=== PATIENT | female | born 1970 | race Caucasian/White ===

== ENCOUNTER 2017-08-05 09:40 | Observation (INO) | payer OTHER ==
[2017-08-05] MEDS ORDERED: ONDANSETRON 4 MG/2 ML VIAL IVP ONE (10:33)
[2017-08-05 10:34] LABS: ABSOLUTE IMMATURE GRANULOCYTES 0.13 10^3/uL (0.00-0.10); ADD DIFF? NO; ADD MORPH? NO; ADD SCAN? NO; ATYPICAL LYMPHOCYTE FLAG 0 (0-99); FRAGMENT RBC FLAG 20 (0-99); HEMATOCRIT 41.9 % (38.0-47.0); HEMOGLOBIN 14.7 g/dL (12.6-16.3); LEFT SHIFT FLG 0 (0-99); LIPEMIA HEMOLYSIS FLAG 90 (0-99); MEAN CELL HEMOGLOBIN 32.7 pg (27.9-34.1); MEAN CELL HEMOGLOBIN CONCENTR. 35.1 g/dL (32.4-36.7); MEAN CELL VOLUME 93.3 fL (81.5-99.8); MEAN PLATELET VOLUME 8.7 fL (8.7-11.7); PLATELET CLUMPS FLAG 10 (0-99); PLATELET COUNT 385 10^3/uL (150-400); RED BLOOD CELL COUNT 4.49 10^6/uL (4.18-5.33); RED CELL DISTRIBUTION WIDTH 13.2 % (11.5-15.2)
[2017-08-05 10:52] LABS: ALANINE AMINOTRANSFERASE 51 IU/L (9-52); ALBUMIN 4.1 g/dL (3.5-5.0); ALKALINE PHOSPHATASE 81 IU/L (38-126); ANION GAP 9 mEq/L (8-16); ASPARTATE AMINOTRANSFERASE 30 IU/L (14-46); BILIRUBIN,TOTAL 0.7 mg/dL (0.1-1.4); BILIRUBIN-CONJUGATED 0.4 mg/dL (0.0-0.5); BILIRUBIN-UNCONJUGATED 0.3 mg/dL (0.0-1.1); CALCIUM 9.6 mg/dL (8.5-10.4); CARBON DIOXIDE 22 mEq/l (22-31); CHLORIDE 104 mEq/L (97-110); CREATININE 0.8 mg/dL (0.6-1.0); GLOMERULAR FILTRATION RATE > 60; GLUCOSE 131 mg/dL (70-100); POTASSIUM 4.8 mEq/L (3.5-5.2); SODIUM 135 mEq/L (134-144)
[2017-08-05] MEDS ORDERED: LORazepam 2 MG/ML INJ IVP ONE (11:59)
[2017-08-05 12:05] LABS: COLOR YELLOW; LEUKOCYTE ESTERASE,URINE NEGATIVE (NEGATIVE); NITRITE,URINE NEGATIVE (NEGATIVE)
[2017-08-05 12:06] LABS: MUCUS TRACE /lpf (NONE-1+)
--- NOTE | 2017-08-05 13:00 | CPEKG ---
Heart Rate: 78 RR Interval: 769 P-R Interval: 164 QRSD Interval: 88 QT Interval: 424 QTC Interval: 484 P [place]: 50 QRS [place]: 43 T Wave [place]: 235 EKG Severity - ABNORMAL ECG - EKG Impression: SINUS RHYTHM EKG Impression: ABNORMAL T, CONSIDER ISCHEMIA, ANT-LAT LEADS Electronically Signed By: Virginia Chaves 05-Aug-2017 15:25:30
[2017-08-05] MEDS ORDERED: DEXAMETHASONE 4 MG/ML VIAL IVP ONE ×2 (13:07)
[2017-08-05] MEDS ORDERED: cefOXitin SODIUM 2 GM in D5W 100 ML IV ONE ×2 (13:07→13:30)
[2017-08-05] MEDS ORDERED: LEVOTHYROXINE 100 MCG TAB PO SCH ×2 (13:15→13:30)
[2017-08-05] MEDS ORDERED: LR 1,000 ML IV SCH ×3 (13:30→16:00)
[2017-08-05] MEDS ORDERED: BUPIVACAINE 0.25% 30 ML SDV ONE (13:38)
--- NOTE | 2017-08-05 14:00 | PDGENHP ---
History and Physical - Chief Complaint abd pain - History of Present Illness 47 y/o female with acute onset upper abdominal pain at 0300. She came to the ED and was seen by Wisam Archibald PA-C. A gallbladder ultrasound showed multiple stone and an 11mm CBD. Surgical consultation was requested. History Information - Allergies/Home Medication List Allergies/Adverse Reactions: No Known Allergies Allergy (Unverified 08/05/17 10:12) Home Medications: Herbals/Supplements -Info Only 1 ea PO DAILY 08/05/17 [Last Taken Unknown] Ibuprofen [Motrin (*)] 200 mg PO DAILY PRN 08/05/17 [Last Taken Unknown] Levothyroxine [Synthroid 88 mcg (*)] 88 mcg PO DAILY06 08/05/17 [Last Taken ] Propylene Glycol/Peg 400 [Systane 0.3-0.4% Eye Drops] 1 drop EACHEYE DAILY PRN 08/05/17 [Last Taken Unknown] I have personally reviewed and updated: family history, medical history, social history (works at [employer]/grew up in [place]) - Past Medical History Additional medical history: history of palpitations/abnormal ECG at [facility] - Surgical History Reports: no pertinent surgical hx - Social History Smoking Status: Current every day smoker (smokes 5-6 cigs/day) Alcohol Use: Occasionally Drug Use: None Review of Systems Review of Systems: Gastrointestinal: Reports: vomitting Genitourinary: Reports: no symptoms Muscolosketal: Reports: no symptoms Skin: Reports: no symptoms Neurological: Reports: no symptoms Hematologic/Lymphatic: Reports: no symptoms Physical Exam Physical Exam: Temp Pulse Resp BP Pulse Ox 36.6 C 76 18 133/67 H 96 08/05/17 13:06 08/05/17 13:06 08/05/17 13:06 08/05/17 13:06 08/05/17 13:06 Constitutional: no apparent distress Eyes: anicteric sclera Ears, Nose, Mouth, Throat: moist mucous membranes Cardiovascular: regular rate and rhythym Respiratory: no respiratory distress, no rales or rhonchi, clear to auscultation Gastrointestinal: tenderness (RUQ/+ Bui's sign) Genitourinary: no bladder fullness Skin: warm, normal color Neurologic: AAOx3 Psychiatric: interacting appropriately Lymph, Heme, Immunologic: no cervical LAD, no supraclavicular LAD Lab Data & Imaging Review 08/05/17 10:25 08/05/17 10:25 WBC 13.38 10^3/uL (3.80-9.50) H 08/05/17 10:25 RBC 4.49 10^6/uL (4.18-5.33) 08/05/17 10:25 Hgb 14.7 g/dL (12.6-16.3) 08/05/17 10:25 Hct 41.9 % (38.0-47.0) 08/05/17 10:25 MCV 93.3 fL (81.5-99.8) 08/05/17 10:25 MCH 32.7 pg (27.9-34.1) 08/05/17 10:25 MCHC 35.1 g/dL (32.4-36.7) 08/05/17 10:25 RDW 13.2 % (11.5-15.2) 08/05/17 10:25 Plt Count 385 10^3/uL (150-400) 08/05/17 10:25 MPV 8.7 fL (8.7-11.7) 08/05/17 10:25 Neut % (Auto) 90.2 % (39.3-74.2) H 08/05/17 10:25 Lymph % (Auto) 6.2 % (15.0-45.0) L 08/05/17 10:25 [place] % (Auto) 2.3 % (4.5-13.0) L 08/05/17 10:25 Eos % (Auto) 0.1 % (0.6-7.6) L 08/05/17 10:25 Baso % (Auto) 0.2 % (0.3-1.7) L 08/05/17 10:25 Nucleat RBC Rel Count 0.0 % (0.0-0.2) 08/05/17 10:25 Absolute Neuts (auto) 12.07 10^3/uL (1.70-6.50) H 08/05/17 10:25 Absolute Lymphs (auto) 0.83 10^3/uL (1.00-3.00) L 08/05/17 10:25 Absolute Monos (auto) 0.31 10^3/uL (0.30-0.80) 08/05/17 10:25 Absolute Eos (auto) 0.01 10^3/uL (0.03-0.40) L 08/05/17 10:25 Absolute Basos (auto) 0.03 10^3/uL (0.02-0.10) 08/05/17 10:25 Absolute Nucleated RBC 0.00 10^3/uL (0-0.01) 08/05/17 10:25 Immature Gran % 1.0 % (0.0-1.1) 08/05/17 10:25 Immature Gran # 0.13 10^3/uL (0.00-0.10) H 08/05/17 10:25 Sodium 135 mEq/L (134-144) 08/05/17 10:25 Potassium 4.8 mEq/L (3.5-5.2) 08/05/17 10:25 Chloride 104 mEq/L (97-110) 08/05/17 10:25 Carbon Dioxide 22 mEq/l (22-31) 08/05/17 10:25 Anion Gap 9 mEq/L (8-16) 08/05/17 10:25 BUN 10 mg/dL (7-23) 08/05/17 10:25 Creatinine 0.8 mg/dL (0.6-1.0) 08/05/17 10:25 Estimated GFR > 60 08/05/17 10:25 Glucose 131 mg/dL (70-100) H 08/05/17 10:25 Calcium 9.6 mg/dL (8.5-10.4) 08/05/17 10:25 Total Bilirubin 0.7 mg/dL (0.1-1.4) 08/05/17 10:25 Conjugated Bilirubin 0.4 mg/dL (0.0-0.5) 08/05/17 10:25 Unconjugated Bilirubin 0.3 mg/dL (0.0-1.1) 08/05/17 10:25 AST 30 IU/L (14-46) 08/05/17 10:25 ALT 51 IU/L (9-52) 08/05/17 10:25 Alkaline Phosphatase 81 IU/L (38-126) 08/05/17 10:25 Total Protein 7.0 g/dL (6.3-8.2) 08/05/17 10:25 Albumin 4.1 g/dL (3.5-5.0) 08/05/17 10:25 Lipase 47 IU/L (23-300) 08/05/17 10:25 Beta HCG, Qual NEGATIVE 08/05/17 10:25 Urine Color YELLOW 08/05/17 11:50 Urine Appearance CLEAR 08/05/17 11:50 Urine pH 6.0 (5.0-7.5) 08/05/17 11:50 Ur Specific [place] 1.020 (1.002-1.030) 08/05/17 11:50 Urine Protein NEGATIVE (NEGATIVE) 08/05/17 11:50 Urine Ketones 1+ (NEGATIVE) H 08/05/17 11:50 Urine Blood NEGATIVE (NEGATIVE) 08/05/17 11:50 Urine Nitrate NEGATIVE (NEGATIVE) 08/05/17 11:50 Urine Bilirubin NEGATIVE (NEGATIVE) 08/05/17 11:50 Urine Urobilinogen NEGATIVE EU (0.2-1.0) 08/05/17 11:50 Ur Leukocyte Esterase NEGATIVE (NEGATIVE) 08/05/17 11:50 Urine RBC 1-3 /hpf (0-3) 08/05/17 11:50 Urine WBC 1-3 /hpf (0-3) 08/05/17 11:50 Ur Epithelial Cells TRACE /lpf (NONE-1+) 08/05/17 11:50 Urine Mucus TRACE /lpf (NONE-1+) 08/05/17 11:50 Urine Glucose NEGATIVE (NEGATIVE) 08/05/17 11:50 Visualized and Interpreted imaging results: Yes Interpretation: multiple gallstones on ultrasound/no wall thickening. MRCP normal CBD/no choledocholithiasis Visualized and Interpreted EKG results: Yes EKG Interpretation: Positive for: T waves inversion (present since 2009 on old ECG from [facility]) Assessment & Plan Assessment: cholecystitis/cholelithiasis old abnormality on ECG and hx arrhythmia I recommended proceeding with lap cholecystectomy. We discussed the procedure, risks and expected recovery. Informed consent was obtained Pre-op Cefoxitin 2 gm ordered. SCD's. Anticipate discharge tomorrow as patient lives alone. Loreto Luke MD, FACS
--- NOTE | 2017-08-05 14:10 | PDANEPAE ---
ANE Past Medical History - Cardiovascular History Hx Hypertension: No Hx Arrhythmias: Yes Hx Chest Pain: No Hx Coronary Artery / Peripheral Vascular Disease: No Hx CHF / Valvular Disease: No Hx Palpitations: Yes - Pulmonary History Hx COPD: No Hx Asthma/Reactive Airway Disease: No Hx Recent Upper Respiratory Infection: No Hx Oxygen in Use at Home: No Hx Sleep Apnea: No - Neurologic History Hx Cerebrovascular Accident: No Hx Seizures: No Hx Dementia: No - Endocrine History Hx Diabetes: No Hypothyroid: Yes Hyperthyroid: No Obesity: yes, mild - Renal History Hx Renal Disorders: No - Liver History Hx Hepatic Disorders: No - Cancer History Hx Cancer: No - Congenital Disorder History Hx Congenital Disorders: No ANE Review of Systems Review of Systems: - Exercise capacity METS (RN): 4 METS ANE Patient History - Allergies Allergies/Adverse Reactions: No Known Allergies Allergy (Unverified 08/05/17 10:12) - Home Medications Home Medications: Herbals/Supplements -Info Only 1 ea PO DAILY 08/05/17 [Last Taken Unknown] Ibuprofen [Motrin (*)] 200 mg PO DAILY PRN 08/05/17 [Last Taken Unknown] Levothyroxine [Synthroid 88 mcg (*)] 88 mcg PO DAILY06 08/05/17 [Last Taken ] Propylene Glycol/Peg 400 [Systane 0.3-0.4% Eye Drops] 1 drop EACHEYE DAILY PRN 08/05/17 [Last Taken Unknown] - NPO status NPO Since - Liquids (Date): 08/04/17 NPO Since - Liquids (Time): 21:00 NPO Since - Solids (Date): 08/04/17 NPO Since - Solids (Time): 21:00 - Smoking Hx Smoking Status: Current every day smoker (smokes 5-6 cigs/day) - Alcohol Use Alcohol Use: Occasionally - Family Anes Hx Family Anes Hx: neg - N/A ANE Labs/Vital Signs - Labs Result Diagrams: 08/05/17 10:25 08/05/17 10:25 - Vital Signs Blood Pressure: 133/67 Heart Rate: 76 Respiratory Rate: 18 O2 Sat (%): 96 Height: 157.48 cm Weight: 79.379 kg ANE Physical Exam - Airway Neck exam: FROM Mallampati Score: Class 2 Mouth exam: normal dental/mouth exam - Pulmonary Pulmonary: no respiratory distress, no rales or rhonchi, clear to auscultation - Cardiovascular Cardiovascular: regular rate and rhythym - ASA Status ASA Status: II ANE Anesthesia Plan Anesthesia Plan: general endotracheal anesthesia
[2017-08-05] MEDS ORDERED: PROPOFOL/EMULSION 500 MG/50 ML BOTTLE IV ONE (14:12)
[2017-08-05] MEDS ORDERED: REMIFENTANIL HCL 1 MG VIAL ONE (14:12)
[2017-08-05] MEDS ORDERED: fentaNYL 100 MCG/2 ML INJ ONE ×3 (14:12→15:44)
[2017-08-05] MEDS ORDERED: ROCURONIUM 50 MG/5 ML VIAL ONE (14:13)
[2017-08-05] MEDS ORDERED: SUCCINYLCHOLINE CHLORIDE*ANESTHESIA ONLY*200 MG/10 ML SYR IVP ONE (14:14)
[2017-08-05] MEDS ORDERED: LIDOCAINE 2% 5 ML SDV ONE (14:14)
[2017-08-05] MEDS ORDERED: KETOROLAC 30 MG/1 ML SDV ONE (14:14)
[2017-08-05] MEDS ORDERED: DEXAMETHASONE 4 MG/ML VIAL ONE (14:14)
[2017-08-05] MEDS ORDERED: ACETAMINOPHEN 500 MG TAB PO PRN (14:46)
[2017-08-05] MEDS ORDERED: OXYCODONE/APAP 5/325 TAB PO PRN (14:46)
[2017-08-05] MEDS ORDERED: HYDROCODONE/APAP 5/325 TAB PO PRN (14:46)
[2017-08-05] MEDS ORDERED: PROMETHAZINE HCL 25 MG/ML INJ IVP PRN ×2 (14:46→20:21)
[2017-08-05] MEDS ORDERED: HYDROmorphONE/DILAUDID 1 MG/ML INJ IVP PRN ×2 (14:46→20:22)
[2017-08-05] MEDS ORDERED: LR 500 ML IV PRN (14:46)
[2017-08-05] MEDS ORDERED: ONDANSETRON 4 MG/2 ML VIAL IVP PRN (14:46)
[2017-08-05] MEDS ORDERED: NALOXONE HCL 0.4 MG/ML INJ IVP PRN (14:46)
[2017-08-05] MEDS ORDERED: PHENYLEPHRINE HCL 100 MCG/ML SYR ONE (14:54)
--- NOTE | 2017-08-05 15:00 | EDPHY ---
H & P Stated Complaint: Epigastric pain;n/v since this morning;sent by [facility] for eval HPI/ROS: Chief complaint: Epigastric pain History of present illness: 47-year-old female presents to the emergency department for evaluation of epigastric pain. She reports the onset of symptoms over the last day. She has had associated nausea and vomiting. She denies precipitating factors. Denies alleviating factors. Denies other associated signs or symptoms including no fevers, no diarrhea or constipation, no urinary symptoms. She has never had similar. Review of systems: A 10 point review of systems was obtained and other than described above was negative - Personal History LMP (Females 10-55): Post Menopausal Current Tetanus Diphtheria and Acellular Pertussis (TDAP): Yes - Medical/Surgical History Hx Diabetes: No Other PMH: thyroid - Social History Smoking Status: Current every day smoker (smokes 5-6 cigs/day) - Physical Exam Exam: General Appearance: Alert, no distress. Eyes: Pupils equal and round no pallor or injection. ENT, Mouth: Mucous membranes moist. Respiratory: There are no retractions, lungs are clear to auscultation. Cardiovascular: Regular rate and rhythm. Gastrointestinal: Bowel sounds are normal. Patient is tender to palpation in the epigastric and right upper quadrant with positive Bui sign. Otherwise unremarkable. Neurological: Alert and oriented x4. Strength and sensation intact and symmetrical. Skin: Warm and dry, no rashes. Musculoskeletal: Neck is supple nontender. Extremities are symmetrical, full range of motion. Psychiatric: Patient is oriented X 3, there is no agitation. Constitutional: Initial Vital Signs Heart Rate 69 08/05/17 09:55 Respiratory Rate 18 08/05/17 09:55 Blood Pressure 131/78 H 08/05/17 09:55 O2 Sat (%) 99 08/05/17 09:55 O2 Delivery Mode Room Air Allergies/Adverse Reactions: No Known Allergies Allergy (Unverified 08/05/17 10:12) Home Medications: Medication Instructions Recorded Herbals/Supplements -Info Only 1 ea PO DAILY 08/05/17 Ibuprofen [Motrin (*)] 200 mg PO DAILY PRN 08/05/17 Levothyroxine [Synthroid 88 mcg 88 mcg PO DAILY06 08/05/17 (*)] Propylene Glycol/Peg 400 [Systane 1 drop EACHEYE DAILY PRN 08/05/17 0.3-0.4% Eye Drops] Medical Decision Making - Diagnostics Imaging Results: Imaging Impressions Abdomen Ultrasound 08/05/17 10:27 Impression: 1. Cholelithiasis with multiple mobile shadowing calculi. 2. Dilated common bile duct at 11 mm. 3. Distal common bile duct and pancreas obscured by bowel gas. Findings discussed with Emergency Department physician's bilingual legal assistant, Wisam Archibald, at 1136 hours, 08/05/2017. Final report concurs with initial preliminary interpretation. Abdomen MRI 08/05/17 11:44 Impression: 1. Cholelithiasis without evidence of choledocholithiasis, with the common bile duct at the upper limits of normal in caliber. 2. Fatty liver. 3. Tiny hiatal hernia. 4. Additional findings as above. Findings discussed with Theron Luke at the time of the study. Findings discussed with RAFY Edwards, 08/05/2017, at 1257 hours. Imaging: Discussed imaging studies w/ will call clerk Radiologist ED Course/Re-evaluation: Patient is discussed with my secondary supervising physician Dr. Virginia Chaves. Patient presents to the emergency department for epigastric pain. Ultimately patient appears to have an acute gallbladder problem. On-call surgery, Dr. Theron Luke has consulted on this patient, he recommended an MRCP. This is obtained and reviewed by Dr. Luke who has decided to take him to surgery. There is concern for EKG changes on a preop EKG. I have consulted with Dr. Gross with the patient's primary care group who reports inverted T- waves in V1 through V6 in 2009 and inverted T-waves in V1 through V4 on an EKG in 2015, I relayed this information to Dr. Luke. Ultimately the patient is admitted to Dr. Luke for definitive care. Differential Diagnosis: Included but not limited to cholelithiasis, cholecystitis, choledocholithiasis, cholangitis, pancreatitis, gastritis, gastroenteritis, peptic ulcer disease, urinary tract disease - Data Points Laboratory Results: Laboratory Results 08/05/17 10:25 08/05/17 10:25 08/05/17 08/05/17 08/05/17 11:50 10:25 10:25 WBC RBC Hgb Hct MCV MCH MCHC RDW Plt Count MPV Neut % (Auto) Lymph % (Auto) [place] % (Auto) Eos % (Auto) Baso % (Auto) Nucleat RBC Rel Count Absolute Neuts (auto) Absolute Lymphs (auto) Absolute Monos (auto) Absolute Eos (auto) Absolute Basos (auto) Absolute Nucleated RBC Immature Gran % Immature Gran # Sodium 135 mEq/L mEq/L (134-144) Potassium 4.8 mEq/L mEq/L (3.5-5.2) Chloride 104 mEq/L mEq/L (97-110) Carbon Dioxide 22 mEq/l mEq/l (22-31) Anion Gap 9 mEq/L mEq/L (8-16) BUN 10 mg/dL mg/dL (7-23) Creatinine 0.8 mg/dL mg/dL (0.6-1.0) Estimated GFR > 60 Glucose 131 mg/dL H mg/dL (70-100) Calcium 9.6 mg/dL mg/dL (8.5-10.4) Total Bilirubin 0.7 mg/dL mg/dL (0.1-1.4) Conjugated Bilirubin 0.4 mg/dL mg/dL (0.0-0.5) Unconjugated Bilirubin 0.3 mg/dL mg/dL (0.0-1.1) AST 30 IU/L IU/L (14-46) ALT 51 IU/L IU/L (9-52) Alkaline Phosphatase 81 IU/L IU/L (38-126) Total Protein 7.0 g/dL g/dL (6.3-8.2) Albumin 4.1 g/dL g/dL (3.5-5.0) Lipase 47 IU/L IU/L (23-300) Beta HCG, Qual NEGATIVE Urine Color YELLOW Urine Appearance CLEAR Urine pH 6.0 (5.0-7.5) Ur Specific [place] 1.020 (1.002-1.030) Urine Protein NEGATIVE (NEGATIVE) Urine Ketones 1+ H (NEGATIVE) Urine Blood NEGATIVE (NEGATIVE) Urine Nitrate NEGATIVE (NEGATIVE) Urine Bilirubin NEGATIVE (NEGATIVE) Urine Urobilinogen NEGATIVE EU EU (0.2-1.0) Ur Leukocyte Esterase NEGATIVE (NEGATIVE) Urine RBC 1-3 /hpf /hpf (0-3) Urine WBC 1-3 /hpf /hpf (0-3) Ur Epithelial Cells TRACE /lpf /lpf (NONE-1+) Urine Mucus TRACE /lpf /lpf (NONE-1+) Urine Glucose NEGATIVE (NEGATIVE) 08/05/17 10:25 WBC 13.38 10^3/uL H 10^3/uL (3.80-9.50) RBC 4.49 10^6/uL 10^6/uL (4.18-5.33) Hgb 14.7 g/dL g/dL (12.6-16.3) Hct 41.9 % % (38.0-47.0) MCV 93.3 fL fL (81.5-99.8) MCH 32.7 pg pg (27.9-34.1) MCHC 35.1 g/dL g/dL (32.4-36.7) RDW 13.2 % % (11.5-15.2) Plt Count 385 10^3/uL 10^3/uL (150-400) MPV 8.7 fL fL (8.7-11.7) Neut % (Auto) 90.2 % H % (39.3-74.2) Lymph % (Auto) 6.2 % L % (15.0-45.0) [place] % (Auto) 2.3 % L % (4.5-13.0) Eos % (Auto) 0.1 % L % (0.6-7.6) Baso % (Auto) 0.2 % L % (0.3-1.7) Nucleat RBC Rel Count 0.0 % % (0.0-0.2) Absolute Neuts (auto) 12.07 10^3/uL H 10^3/uL (1.70-6.50) Absolute Lymphs (auto) 0.83 10^3/uL L 10^3/uL (1.00-3.00) Absolute Monos (auto) 0.31 10^3/uL 10^3/uL (0.30-0.80) Absolute Eos (auto) 0.01 10^3/uL L 10^3/uL (0.03-0.40) Absolute Basos (auto) 0.03 10^3/uL 10^3/uL (0.02-0.10) Absolute Nucleated RBC 0.00 10^3/uL 10^3/uL (0-0.01) Immature Gran % 1.0 % % (0.0-1.1) Immature Gran # 0.13 10^3/uL H 10^3/uL (0.00-0.10) Sodium Potassium Chloride Carbon Dioxide Anion Gap BUN Creatinine Estimated GFR Glucose Calcium Total Bilirubin Conjugated Bilirubin Unconjugated Bilirubin AST ALT Alkaline Phosphatase Total Protein Albumin Lipase Beta HCG, Qual Urine Color Urine Appearance Urine pH Ur Specific [place] Urine Protein Urine Ketones Urine Blood Urine Nitrate Urine Bilirubin Urine Urobilinogen Ur Leukocyte Esterase Urine RBC Urine WBC Ur Epithelial Cells Urine Mucus Urine Glucose Medications Given: Discontinued Medications Lorazepam (Ativan Injection) 1 mg IVP EDNOW ONE Stop: 08/05/17 12:00 Last Admin: 08/05/17 12:07 Dose: 1 mg Ondansetron HCl (Zofran) 4 mg IVP EDNOW ONE Stop: 08/05/17 10:34 Last Admin: 08/05/17 10:38 Dose: 4 mg Departure - Departure Disposition: To OP Cath/Surgery Clinical Impression: Acute cholecystitis Condition: Good
[2017-08-05] MEDS ORDERED: SUGAMMADEX SODIUM 200 MG/2 ML VIAL IVP ONE (15:05)
--- NOTE | 2017-08-05 15:34 | POSTOPPROG ---
Post Op Note Date of Operation: 08/05/17 Surgeon: Theron Luke (, FACS) Anesthesiologist: Abdullahi Appiah Anesthesia: GET(General Endotracheal) Pre-op Diagnosis: cholelithiasis/cholecystitis Post-op Diagnosis: same Procedure: lap mauri Inf/Abcess present in the surg proc area at time of surgery?: No EBL: Minimal Specimen(s): gallbladder
[2017-08-05] MEDS ORDERED: OXYCODONE/APAP 5/325 TAB ONE (15:45)
[2017-08-05] MEDS: fentaNYL 100 MCG/2 ML INJ IVP PRN ×2 (15:45→15:52)
--- NOTE | 2017-08-05 19:20 | SOAPPROG ---
Downtime Inpatient MD Late Entry SOAP Note: Amie is resting comfortably after surgery. Her incisions appear uncomplicated We discussed the findings at surgery and I encouraged her to use her incentive spirometer. I anticipate she will discharge home in the morning. Loreto Luke MD, FACS
[2017-08-05] MEDS ORDERED: ONDANSETRON DISINTEGRATING 4 MG TAB PO PRN (20:21)
[2017-08-05] MEDS ORDERED: CARBOXYMETHYLCELLULOSE 0.5% 0.4 ML DROPERETTE EACHEYE PRN (20:27)
[2017-08-05] MEDS: HYDROCODONE/APAP 5/325 TAB PO PRN (20:37)
[2017-08-05] MEDS: SENNOSIDES/DOCUSATE SODIUM TAB PO SCH ×2 (20:38→20:40)
[2017-08-05 23:56] VITALS: RESP 16
--- NOTE | 2017-08-06 05:10 | GOP ---
[f rep st] OPERATIVE REPORT DATE OF OPERATION: 08/05/2017 SURGEON: Theron Luke MD ANESTHESIA: General endotracheal, Abdullahi Appiah DO. PREOPERATIVE DIAGNOSIS: Cholelithiasis and acute cholecystitis. POSTOPERATIVE DIAGNOSIS: Cholelithiasis and acute cholecystitis. PROCEDURE PERFORMED: Laparoscopic cholecystectomy. FINDINGS: Gallbladder distention secondary to cystic duct obstruction. Acute cholecystitis without evidence of gangrene. Mild fatty infiltration of the liver. ESTIMATED BLOOD LOSS: 10 cc. DESCRIPTION OF PROCEDURE: After informed consent was obtained, the patient was brought to the operat ing room and placed under general anesthesia. The abdomen was prepped and draped in THE usual fashio n. Before proceeding, a time-out and identification of the patient was performed. 0.25% Marcaine was used to infiltrate all incision sites. A longitudinal incision was made through t he base of the umbilicus and ventral traction applied to the abdominal wall. A Veress needle was int roduced and position was confirmed by saline infusion. A pneumoperitoneum was established with CO2 g as to a pressure of 15 mmHg. The Veress needle was withdrawn and replaced with a 12 mm bladeless tro car. A 0 degree scope was introduced and the peritoneal cavity was visualized. Additional 5 mm port s were placed under direct visualization in the subxiphoid position to the right of the falciform lig ament. The right upper quadrant midclavicular line and right upper quadrant anterior axillary line. This allowed introduction of atraumatic graspers and these were used to grasp the fundus of the gall bladder and retract and the liver cephalad. The liver appeared normal other than mild hepatic steato sis. The infundibulum of the gallbladder showed edema and swelling but no evidence of perforation or gangrene. There appeared to be a stone impacted into the neck of the gallbladder. This was grasped and retracted allowing dissection of the peritoneum around the cystic duct circumferentially. The c ystic artery was dispatched with the Harmonic Scalpel. The cystic duct was doubly hemo clipped and d ivided. The gallbladder was then dissected away from the liver edge using the Harmonic Scalpel with minimal bleeding. Gallbladder was retrieved through the umbilical port site. The subhepatic space w as irrigated and aspirated until the effluent was clear. The operative field appeared hemostatic. T he umbilical fascial defect was repaired with a single 0 Vicryl suture using a transfascial closure n idania. The pneumoperitoneum was evacuated. The remaining ports were removed. Subcutaneous tissues were closed with 3-0 Monocryl suture. Skin was closed with 4-0 Monocryl suture in a subcuticular fas hion. Mastisol and Steri-Strips were applied. Needle, sponge, and instrument count were correct. COMPLICATIONS: None. /[id number]/MODL
[2017-08-06 05:52] LABS: % IMMATURE GRANULYOCYTES 1.5 % (0.0-1.1); ABSOLUTE IMMATURE GRANULOCYTES 0.23 10^3/uL (0.00-0.10); ADD DIFF? NO; ADD MORPH? NO; ADD SCAN? NO; ATYPICAL LYMPHOCYTE FLAG 0 (0-99); FRAGMENT RBC FLAG 10 (0-99); HEMOGLOBIN 12.1 g/dL (12.6-16.3); LEFT SHIFT FLG 10 (0-99); LIPEMIA HEMOLYSIS FLAG 90 (0-99); MEAN CELL HEMOGLOBIN 33.3 pg (27.9-34.1); MEAN CELL HEMOGLOBIN CONCENTR. 35.6 g/dL (32.4-36.7); MEAN CELL VOLUME 93.7 fL (81.5-99.8); MEAN PLATELET VOLUME 9.1 fL (8.7-11.7); PLATELET CLUMPS FLAG 10 (0-99); PLATELET COUNT 329 10^3/uL (150-400); RED BLOOD CELL COUNT 3.63 10^6/uL (4.18-5.33); RED CELL DISTRIBUTION WIDTH 13.3 % (11.5-15.2)
--- NOTE | 2017-08-06 06:45 | PDDCSUM ---
Discharge Summary Discharge Summary: DOA: 08/05/17 DOD: 08/06/17 DC Dx: Acute cholecystitis Procedure: 08/05 lap cholecystectomy Course: Amie presented with acute onset of RUQ pain and was found to have acute cholcystitis due to gallstones and cystic duct obstruction. She underwent uneventful lap mauri and was admitted for obs after surgery. Her pain improved and she was advanced in her diet. She was discharged the morning after surgery with instructions in diet and activity. She will follow up in my office in one week and will be likely ready to return to work by 08/17/17 DC Meds: med reconciliation completed Rx written for [place] 5/325 #30, Senokot-S #30 and Zofran 4mg #7 S MD Ti, FACS
[2017-08-06 08:23] VITALS: BP 110/59; PULSE 66; TEMP 98.1; O2SAT 97
[2017-08-06] MEDS: HYDROCODONE/APAP 5/325 TAB PO PRN (08:38)
[2017-08-06] MEDS: SENNOSIDES/DOCUSATE SODIUM TAB PO SCH (08:38)
[2017-08-06] MEDS ORDERED: FLU VACC QS 2017-18 (3YR+)/PF 0.5 ML SYR (FLUARIX QUAD) IM ONE ×2 (08:44→11:30)
[2017-08-06] MEDS ORDERED: ENOXAPARIN 40 MG/0.4 ML SYR SC SCH (09:00)
--- NOTE | 2017-08-06 13:24 | ASDISCHSUM ---
Discharge Information Plan Status:Home with No Needs Medically Cleared to Leave: Discharge Date:08/06/2017 12:00 PM CM D/C Disposition:Home, Routine, Self-Care ADT D/C Disposition:Home, Routine, Self-Care Projected Discharge Date:08/06/2017 12:00 PM Transportation at D/C:Family Discharge Delay Reason: Follow-Up Date:08/06/2017 12:00 PM Discharge Slot: Final Diagnosis: Placement Information Patient Contact Information Contact Name:HOWARDTOLU Relationship: Address: Home Phone: Work Phone: City: Alternate Phone: State/Achieved.[employer] Code: Email: Financial Information Financial Class:HMO and PPO Plans Primary Plan Desc:[employer] P[employer] Primary Plan Number:[id number] Secondary Plan Desc: Secondary Plan Number: Assessment Information Intervention Information Intervention Type:*Incorrect Registration Date of Service:08/06/2017 10:24 AM Patient Type:Inpatient Staff Member:JUAN Sam, Conchita Hours: Discipline: Severity: Comment:
== END 2017-08-06 12:00 | disposition home or self-care (01) ==
LOC: INTOOBSV 13:16 → F3E 16:23
PROVIDERS: ADMIT Surgery; ATTEND Surgery
PROC: 0FT44ZZ Resection of Gallbladder, Percutaneous Endoscopic Approach (ICD-10-PCS; principal; 2017-08-05 14:00)
DX: K80.01 Calculus of gallbladder with acute cholecystitis with obstruction (principal); F17.210 Nicotine dependence, cigarettes, uncomplicated; Z23 Encounter for immunization
CPT/HCPCS: 47562; 74181; 76705; 90471; 93005; G0378; 96374; G0008; J0330; J0694; J1100; J1650; J1885; J2060; J2370; J2405; J2704; J3010

== ENCOUNTER 2017-08-08 04:27 | Observation (INO) | payer OTHER ==
--- NOTE | 2017-08-08 04:35 | EDPHY ---
H & P Stated Complaint: abd pain, post-op 08/05 HPI/ROS: HPI CHIEF COMPLAINT: Abdominal pain HISTORY OF PRESENT ILLNESS: This patient is a 39-year-old female otherwise healthy no significant medical history she has recently had a cholecystectomy by Dr. Luke on the 05 of August. She presents emergency room with sudden onset epigastric abdominal pain she describes as sharp stabbing waxing waning. It goes directly to her back. She has associated nausea with it. Denies any lower abdominal pain. Denies significant pain at her laparoscopic sites. Denies chest pain or shortness of breath. Pain is located epigastric and right upper quadrant. No fever. This woke her from sleep at 3:30 a.m.. Past Medical History: Denies significant medical history Past Surgical History: Cholecystectomy Social History: Denies daily use drugs alcohol tobacco products. Family History: Noncontributory. ROS REVIEW OF SYSTEMS: A comprehensive 10 point review of systems is otherwise negative aside from elements mentioned in the history of present illness. Exam Constitutional appears well nontoxic, triage nursing summary reviewed, vital signs reviewed, awake/alert. Eyes normal conjunctivae and sclera, EOMI, PERRLA. HENT normal inspection, atraumatic, moist mucus membranes, no epistaxis, neck supple/ no meningismus, no raccoon eyes. Respiratory clear to auscultation bilaterally, normal breath sounds, no respiratory distress, no wheezing. Cardiovascular rate normal, regular rhythm, no murmur, no edema, distal pulses normal. Gastrointestinal soft, mild tender palpation epigastric laparoscopic sites appear clean, dry, intact, minimally tender,, no rebound, no guarding, normal bowel sounds, no distension, no pulsatile mass. Genitourinary no CVA tenderness. Musculoskeletal no midline vertebral tenderness, full range of motion, no calf swelling, no tenderness of extremities, no meningismus, good pulses, neurovascularly intact. Skin pink, warm, & dry, no rash, skin atraumatic. Neurologic awake, alert and oriented x 3, AAOx3, moves all 4 extremities equally, motor intact, sensory intact, CN II-XII intact, normal cerebellar, normal vision, normal speech. Psychiatric normal mood/affect. Heme/Lymph/Immune no lymphadenopathy. Differential Diagnosis: Includes but is not limited to in a particular order, postoperative pain, retained gallstone, pancreatitis, bowel obstruction, dehydration, electrolyte disturbance. Medical Decision Making: Plan for this patient IV establishment with IV blood draw, obtain EKG, troponin, lipase, LFTs, bilirubin, IV Dilaudid 1 mg for pain control, IV Zofran for nausea. Re-evaluation: EKG interpretation by me on record in [facility] system. Impression time of EKG 4:57 a.m., this is sinus rhythm rate of 67. Abnormal T-wave inversions V1 V2 V3. 1 I compare this EKG dated to her old EKG 08/05/2017 similar morphology there the T-wave abnormality seen in V1 V2 V3 and V4 exactly same as her previous EKG. ED x-ray chest one view an ED x-ray KUB no free air. Normal bowel gas pattern. 0552: ED ultrasound right upper quadrant trace free fluid around the liver and more since lb otherwise unremarkable. CBD normal. No large biloma appreciated. Blood work reviewed. Patient comfortable with pain medicine that this time. 2 mg IV Dilaudid. She received IV fluids and Zofran. Resting at this time. 0556AM: Dr. Luke as been consult. Requesting CT scan abdomen pelvis with IV contrast. CT scan of the abd iv contrast The results of the study are ff liver pelvis. The study was read by Dr. Luke. I viewed the images myself on the PACS system. 0651AM: Dr. Luke Seeing and evaluating patinet. Most likely admit. Dispo Per Dr. Luke. . Source: Patient - Personal History LMP (Females 10-55): Now - Medical/Surgical History Hx Asthma: No Hx Chronic Respiratory Disease: No Hx Diabetes: No Hx Cardiac Disease: No Hx Renal Disease: No Hx Cirrhosis: No Hx Alcoholism: No Hx HIV/AIDS: No Hx Splenectomy or Spleen Trauma: No Other PMH: thyroid, - Social History Smoking Status: Current every day smoker Constitutional: Initial Vital Signs Temperature (C) 37.1 C 08/08/17 04:29 Heart Rate 70 08/08/17 04:29 Respiratory Rate 20 08/08/17 04:29 Blood Pressure 155/84 H 08/08/17 04:29 O2 Sat (%) 98 08/08/17 04:29 O2 Delivery Mode Room Air O2 (L/minute) 2 Allergies/Adverse Reactions: No Known Allergies Allergy (Unverified 08/08/17 04:29) Home Medications: Medication Instructions Recorded Herbals/Supplements -Info Only 1 ea PO DAILY 08/05/17 Ibuprofen [Motrin (*)] 200 mg PO DAILY PRN 08/05/17 Propylene Glycol/Peg 400 [SYSTANE 1 drop EACHEYE DAILY PRN 08/05/17 0.3-0.4% EYE DROPS] Hydrocodone/APAP 5/325 [[place] 1 - 2 tab PO Q4HRS PRN #20 tab 08/06/17 5/325 (*)] Ondansetron Odt [Zofran Odt 4 mg 4 mg PO Q4HRS PRN #7 tab 08/06/17 (*)] Levothyroxine [Synthroid 88 mcg 88 mcg PO DAILY06 08/08/17 (*)] Amoxicillin/Clavulanate Pot 875 mg PO BID #6 tab 08/10/17 [Augmentin 875 MG TAB (*)] Hydrocodone/APAP 5/325 [[place] 1 tab PO Q4HRS PRN #14 tab 08/10/17 5/325 (*)] Sennosides/Docusate Sodium 1 tab PO BID #30 tab 08/10/17 [Senokot-S] Medical Decision Making - Data Points Laboratory Results: Laboratory Results 08/08/17 04:45 08/08/17 04:45 Medications Given: Hydrocodone Bitart/Acetaminophen ([place] 5/325) 1 tab PO Q4HRS PRN PRN Reason: Pain, Moderate Able to Take PO Stop: 08/19/17 10:46 Last Admin: 08/10/17 09:29 Dose: 1 tab Enoxaparin Sodium (Lovenox) 40 mg SC DAILY MARILYN Stop: 02/05/18 10:59 Last Admin: 08/10/17 08:15 Dose: 40 mg Hydromorphone HCl (Dilaudid) 0.2 - 0.4 mg IVP Q1H PRN PRN Reason: Pain, Severe Unable to Take PO Stop: 08/18/17 07:23 Last Admin: 08/08/17 20:42 Dose: 0.4 mg Lactated Ringer's (Lr) 1,000 mls @ 150 mls/hr IV CONT MARILYN Stop: 02/04/18 07:29 Last Admin: 08/08/17 08:31 Dose: 1,000 mls Levothyroxine Sodium (Synthroid) 88 mcg PO DAILY06 MARILYN Stop: 02/05/18 05:59 Last Admin: 08/10/17 08:14 Dose: 88 mcg Senna/Docusate Sodium (Senokot-S) 1 tab PO BID MARILYN Stop: 02/04/18 20:59 Last Admin: 08/10/17 08:14 Dose: 1 tab Temazepam (Restoril) 15 mg PO HS PRN PRN Reason: Sleep/Insomnia Stop: 02/04/18 07:23 Last Admin: 08/09/17 20:06 Dose: 15 mg Discontinued Medications Bupivacaine HCl (Sensorcaine 0.25% Sdv) Confirm Administered Dose 30 ml .ROUTE .STK-MED ONE Stop: 08/08/17 14:13 Last Admin: 08/08/17 14:53 Dose: 30 ml Hydromorphone HCl (Dilaudid) 1 mg IVP EDNOW ONE Stop: 08/08/17 04:40 Last Admin: 08/08/17 04:49 Dose: 1 mg Hydromorphone HCl (Dilaudid) 1 mg IVP EDNOW ONE Stop: 08/08/17 05:11 Last Admin: 08/08/17 05:14 Dose: 1 mg Hydromorphone HCl (Dilaudid) 1 mg IVP EDNOW ONE Stop: 08/08/17 06:54 Last Admin: 08/08/17 06:56 Dose: 1 mg Hydromorphone HCl (Dilaudid) 0.2 - 0.4 mg IVP Q2HRS PRN PRN Reason: Pain, Severe Unable to Take PO Stop: 08/18/17 07:23 Last Admin: 08/08/17 11:02 Dose: 0.4 mg Sodium Chloride (Ns) 1,000 mls @ 0 mls/hr IV EDNOW ONE; Wide Open PRN Reason: Protocol Stop: 08/08/17 04:40 Last Admin: 08/08/17 04:47 Dose: 1,000 mls Sodium Chloride (Ns) 1,000 mls @ 0 mls/hr IV ONCE ONE PRN Reason: Wide Open Stop: 08/08/17 07:30 Last Admin: 08/08/17 08:31 Dose: 1,000 mls Ampicillin Sodium/Sulbactam (Sodium 3 gm/ Sodium Chloride) 100 mls @ 200 mls/ hr IV Q6H MARILYN PRN Reason: Protocol Stop: 09/07/17 14:59 Last Admin: 08/10/17 08:14 Dose: 100 mls Ondansetron HCl (Zofran) 4 mg IVP EDNOW ONE Stop: 08/08/17 04:40 Last Admin: 08/08/17 04:49 Dose: 4 mg Ondansetron HCl (Zofran) 4 mg IVP Q4HRS PRN PRN Reason: Nausea/Vomiting, Use 1st Stop: 08/09/17 07:23 Last Admin: 08/08/17 09:38 Dose: 4 mg Departure - Departure Disposition: [facility] Acute Clinical Impression: Abdominal pain Qualifiers: Abdominal location: generalized Qualified Code(s): R10.84 - Generalized abdominal pain Condition: Good
[2017-08-08] MEDS ORDERED: NS 1,000 ML IV ONE ×2 (04:39→07:29)
[2017-08-08] MEDS ORDERED: HYDROmorphONE/DILAUDID 1 MG/ML INJ IVP ONE ×3 (04:39→06:53)
[2017-08-08] MEDS ORDERED: ONDANSETRON 4 MG/2 ML VIAL IVP ONE (04:39)
--- NOTE | 2017-08-08 05:01 | CPEKG ---
Heart Rate: 67 RR Interval: 896 P-R Interval: 160 QRSD Interval: 94 QT Interval: 456 QTC Interval: 482 P [place]: 49 QRS [place]: 32 T Wave [place]: 28 EKG Severity - ABNORMAL ECG - EKG Impression: SINUS RHYTHM EKG Impression: ABNORMAL T, CONSIDER ISCHEMIA, ANTERIOR LEADS Electronically Signed By: Rhonda Garcia 10-Aug-2017 05:41:19
[2017-08-08 05:11] LABS: ABSOLUTE IMMATURE GRANULOCYTES 0.11 10^3/uL (0.00-0.10); ADD DIFF? NO; ADD MORPH? NO; ADD SCAN? NO; ATYPICAL LYMPHOCYTE FLAG 0 (0-99); FRAGMENT RBC FLAG 0 (0-99); HEMATOCRIT 39.1 % (38.0-47.0); HEMOGLOBIN 13.6 g/dL (12.6-16.3); LEFT SHIFT FLG 0 (0-99); LIPEMIA HEMOLYSIS FLAG 90 (0-99); MEAN CELL HEMOGLOBIN 32.6 pg (27.9-34.1); MEAN CELL HEMOGLOBIN CONCENTR. 34.8 g/dL (32.4-36.7); MEAN CELL VOLUME 93.8 fL (81.5-99.8); MEAN PLATELET VOLUME 8.9 fL (8.7-11.7); PLATELET CLUMPS FLAG 10 (0-99); PLATELET COUNT 354 10^3/uL (150-400); RED BLOOD CELL COUNT 4.17 10^6/uL (4.18-5.33); RED CELL DISTRIBUTION WIDTH 13.2 % (11.5-15.2)
[2017-08-08 05:17] LABS: INR 0.92 (0.83-1.16); PROTIME(PATIENT) 12.3 SEC (12.0-15.0)
[2017-08-08 05:18] LABS: APTT 27.3 SEC (23.0-38.0)
[2017-08-08 05:20] LABS: ALANINE AMINOTRANSFERASE 107 IU/L (9-52); ALBUMIN 3.9 g/dL (3.5-5.0); ALKALINE PHOSPHATASE 75 IU/L (38-126); ANION GAP 14 mEq/L (8-16); ASPARTATE AMINOTRANSFERASE 58 IU/L (14-46); BILIRUBIN,TOTAL 0.4 mg/dL (0.1-1.4); BILIRUBIN-CONJUGATED 0.3 mg/dL (0.0-0.5); BILIRUBIN-UNCONJUGATED 0.1 mg/dL (0.0-1.1); CALCIUM 9.2 mg/dL (8.5-10.4); CARBON DIOXIDE 24 mEq/l (22-31); CHLORIDE 102 mEq/L (97-110); CREATININE 0.8 mg/dL (0.6-1.0); GLOMERULAR FILTRATION RATE > 60; GLUCOSE 96 mg/dL (70-100); POTASSIUM 3.7 mEq/L (3.5-5.2); SODIUM 140 mEq/L (134-144); TOTAL PROTEIN 6.9 g/dL (6.3-8.2)
[2017-08-08 05:31] LABS: TROPONIN I < 0.012 ng/mL (0.000-0.034)
[2017-08-08] MEDS ORDERED: IOPAMIDOL (ISOVUE-300) 100 ML BTL ONE (06:00)
[2017-08-08 06:39] LABS: COLOR PALE YELLOW; LEUKOCYTE ESTERASE,URINE NEGATIVE (NEGATIVE); NITRITE,URINE NEGATIVE (NEGATIVE)
[2017-08-08 06:52] LABS: MUCUS TRACE /lpf (NONE-1+)
[2017-08-08] MEDS ORDERED: METOCLOPRAMIDE 10 MG/2 ML VIAL IVP PRN (07:24)
[2017-08-08] MEDS ORDERED: ONDANSETRON 4 MG/2 ML VIAL IVP PRN (07:24)
[2017-08-08] MEDS ORDERED: LR 1,000 ML IV SCH (07:30)
--- NOTE | 2017-08-08 07:33 | PDGENHP ---
History and Physical - Chief Complaint RUQ pain - History of Present Illness Amie is a 47 y/o female who is POD #2 after emergent lap cholecystectomy for acute cholecystitis. She felt immediately better after surgery and was discharged home the following morning. She developed severe RUQ pain at 03:30 and came back to the ED. Dr. Little performed an exam and bedside ultrasound which showed some free fluid. A CT confirmed the findings. She is admitted now for further work up and manangement. She had a bowel movement since surgery and has been eating without nausea or emesis History Information - Allergies/Home Medication List Allergies/Adverse Reactions: No Known Allergies Allergy (Unverified 08/08/17 04:29) Home Medications: Herbals/Supplements -Info Only 1 ea PO DAILY 08/05/17 [Last Taken Unknown] Ibuprofen [Motrin (*)] 200 mg PO DAILY PRN 08/05/17 [Last Taken Unknown] Propylene Glycol/Peg 400 [SYSTANE 0.3-0.4% EYE DROPS] 1 drop EACHEYE DAILY PRN 08/05/17 [Last Taken Unknown] I have personally reviewed and updated: family history, medical history, social history, surgical history - Past Medical History Additional medical history: abnormal ECG with inverted T waves in the pre- cordial leads-unchanged from 2010 - Surgical History Reports: no pertinent surgical hx, cholecystectomy - Social History Smoking Status: Current every day smoker Alcohol Use: Occasionally Drug Use: None Additional social history: Amie lives alone/works at Review of Systems Review of Systems: Constitutional: Reports: recent illness Cardiac: Reports: no symptoms Respiratory: Reports: other (pain with deep inspiration) Gastrointestinal: Reports: abdominal pain Genitourinary: Reports: no symptoms Muscolosketal: Reports: other (referred right shoulder pain) Skin: Reports: no symptoms Neurological: Reports: no symptoms Hematologic/Lymphatic: Reports: no symptoms Physical Exam Physical Exam: Temp Pulse Resp BP Pulse Ox 36.7 C 77 16 134/78 H 96 08/08/17 06:00 08/08/17 07:16 08/08/17 07:16 08/08/17 07:16 08/08/17 07:16 Constitutional: other (WDWN female in moderate distress) Eyes: anicteric sclera Ears, Nose, Mouth, Throat: dry mucous membranes Cardiovascular: regular rate and rhythym, no murmur, rub, or gallop Respiratory: no rales or rhonchi, clear to auscultation, reduced air movement Gastrointestinal: other (surgical incisions uncomplicated/diffuse tenderness/ hypoactive bowel sounds) Neurologic: AAOx3 Psychiatric: interacting appropriately Lymph, Heme, Immunologic: no cervical LAD, no supraclavicular LAD Lab Data & Imaging Review 08/08/17 04:45 08/08/17 04:45 WBC 11.31 10^3/uL (3.80-9.50) H 08/08/17 04:45 RBC 4.17 10^6/uL (4.18-5.33) L 08/08/17 04:45 Hgb 13.6 g/dL (12.6-16.3) 08/08/17 04:45 Hct 39.1 % (38.0-47.0) 08/08/17 04:45 MCV 93.8 fL (81.5-99.8) 08/08/17 04:45 MCH 32.6 pg (27.9-34.1) 08/08/17 04:45 MCHC 34.8 g/dL (32.4-36.7) 08/08/17 04:45 RDW 13.2 % (11.5-15.2) 08/08/17 04:45 Plt Count 354 10^3/uL (150-400) 08/08/17 04:45 MPV 8.9 fL (8.7-11.7) 08/08/17 04:45 Neut % (Auto) 71.3 % (39.3-74.2) 08/08/17 04:45 Lymph % (Auto) 18.0 % (15.0-45.0) 08/08/17 04:45 [place] % (Auto) 6.2 % (4.5-13.0) 08/08/17 04:45 Eos % (Auto) 3.1 % (0.6-7.6) 08/08/17 04:45 Baso % (Auto) 0.4 % (0.3-1.7) 08/08/17 04:45 Nucleat RBC Rel Count 0.0 % (0.0-0.2) 08/08/17 04:45 Absolute Neuts (auto) 8.07 10^3/uL (1.70-6.50) H 08/08/17 04:45 Absolute Lymphs (auto) 2.04 10^3/uL (1.00-3.00) 08/08/17 04:45 Absolute Monos (auto) 0.70 10^3/uL (0.30-0.80) 08/08/17 04:45 Absolute Eos (auto) 0.35 10^3/uL (0.03-0.40) 08/08/17 04:45 Absolute Basos (auto) 0.04 10^3/uL (0.02-0.10) 08/08/17 04:45 Absolute Nucleated RBC 0.00 10^3/uL (0-0.01) 08/08/17 04:45 Immature Gran % 1.0 % (0.0-1.1) 08/08/17 04:45 Immature Gran # 0.11 10^3/uL (0.00-0.10) H 08/08/17 04:45 PT 12.3 SEC (12.0-15.0) 08/08/17 04:45 INR 0.92 (0.83-1.16) 08/08/17 04:45 APTT 27.3 SEC (23.0-38.0) 08/08/17 04:45 VBG Lactic Acid 1.7 mmol/L (0.7-2.1) 08/08/17 04:45 Sodium 140 mEq/L (134-144) 08/08/17 04:45 Potassium 3.7 mEq/L (3.5-5.2) 08/08/17 04:45 Chloride 102 mEq/L (97-110) 08/08/17 04:45 Carbon Dioxide 24 mEq/l (22-31) 08/08/17 04:45 Anion Gap 14 mEq/L (8-16) 08/08/17 04:45 BUN 10 mg/dL (7-23) 08/08/17 04:45 Creatinine 0.8 mg/dL (0.6-1.0) 08/08/17 04:45 Estimated GFR > 60 08/08/17 04:45 Glucose 96 mg/dL (70-100) 08/08/17 04:45 Calcium 9.2 mg/dL (8.5-10.4) 08/08/17 04:45 Total Bilirubin 0.4 mg/dL (0.1-1.4) 08/08/17 04:45 Conjugated Bilirubin 0.3 mg/dL (0.0-0.5) 08/08/17 04:45 Unconjugated Bilirubin 0.1 mg/dL (0.0-1.1) 08/08/17 04:45 AST 58 IU/L (14-46) H 08/08/17 04:45 ALT 107 IU/L (9-52) H 08/08/17 04:45 Alkaline Phosphatase 75 IU/L (38-126) 08/08/17 04:45 Troponin I < 0.012 ng/mL (0.000-0.034) 08/08/17 04:45 Total Protein 6.9 g/dL (6.3-8.2) 08/08/17 04:45 Albumin 3.9 g/dL (3.5-5.0) 08/08/17 04:45 Lipase 48 IU/L (23-300) 08/08/17 04:45 Urine Color PALE YELLOW 08/08/17 06:30 Urine Appearance CLEAR 08/08/17 06:30 Urine pH 7.0 (5.0-7.5) 08/08/17 06:30 Ur Specific [place] 1.005 (1.002-1.030) 08/08/17 06:30 Urine Protein NEGATIVE (NEGATIVE) 08/08/17 06:30 Urine Ketones NEGATIVE (NEGATIVE) 08/08/17 06:30 Urine Blood 2+ (NEGATIVE) H 08/08/17 06:30 Urine Nitrate NEGATIVE (NEGATIVE) 08/08/17 06:30 Urine Bilirubin NEGATIVE (NEGATIVE) 08/08/17 06:30 Urine Urobilinogen NEGATIVE EU (0.2-1.0) 08/08/17 06:30 Ur Leukocyte Esterase NEGATIVE (NEGATIVE) 08/08/17 06:30 Urine RBC 3-5 /hpf (0-3) H 08/08/17 06:30 Urine WBC 1-3 /hpf (0-3) 08/08/17 06:30 Ur Epithelial Cells NONE SEEN /lpf (NONE-1+) 08/08/17 06:30 Urine Mucus TRACE /lpf (NONE-1+) 08/08/17 06:30 Urine Glucose NEGATIVE (NEGATIVE) 08/08/17 06:30 Visualized and Interpreted imaging results: Yes Interpretation: small amount of jesús-hepatic fluid/surgical clip in the region of the cystic duct. trace free air in the gallbladder fossa Assessment & Plan Assessment: Abdominal pain (Acute)/s/p lap mauri differential includes post op bleeding/bile leak/intestinal injury/retained stone Plan: Admit for comfort measures and observation. I have requested a STAT HIDA scan to exclude bile duct leak. An MRCP had been performed pre-operatively to evaluate the CBD and was normal. I think it is much less likely that this would represent a retained stone. Even a minor bile leak could cause dramatic pain in the immediate post op setting and would require intervention if confirmed on HIDA.
[2017-08-08] MEDS: HYDROmorphONE/DILAUDID 1 MG/ML INJ IVP PRN ×2 (09:37→11:02)
--- NOTE | 2017-08-08 11:03 | ASMTCMCOM ---
CM Note CM Note Notes: Reviewed chart; spoke w/ JUAN Whittaker re: d/c poc, pt's progress. Pt admitted s/p a recent emergent lap mauri for acute cholecystitis. Pt c/o of severe RUQ pain, found to have free fluid in abd cavity. Pt lives alone and works at . Per Remedios, pt will likely d/c home independently when medically stable. CM avail if poc changes. Date Signed: 08/08/2017 11:02 AM Electronically Signed By:Vivian Nunez RN
--- NOTE | 2017-08-08 12:32 | SOAPPROG ---
Downtime Inpatient MD Late Entry SOAP Note: HIDA scan reviewed/findings consistant with bile leak. I will discuss options with the patient, but favor returning to the OR for surgical drainage. Loreto Luke MD, FACS
[2017-08-08] MEDS ORDERED: HYDROmorphONE/DILAUDID 1 MG/ML INJ IVP PRN ×2 (12:40→15:45)
--- NOTE | 2017-08-08 13:53 | PDANEPAE ---
ANE History of Present Illness Abdominal pain, s/p laparoscopic cholecyctectomy ANE Past Medical History - Cardiovascular History Hx Hypertension: No Hx Arrhythmias: Yes Hx Chest Pain: No Hx Coronary Artery / Peripheral Vascular Disease: No Hx CHF / Valvular Disease: No Hx Palpitations: Yes - Pulmonary History Hx COPD: No Hx Asthma/Reactive Airway Disease: No Hx Recent Upper Respiratory Infection: No Hx Oxygen in Use at Home: No Hx Sleep Apnea: No Sleep Apnea Screening Result - Last Documented: Negative - Neurologic History Hx Cerebrovascular Accident: No Hx Seizures: No Hx Dementia: No - Endocrine History Hx Diabetes: No Hypothyroid: Yes - Renal History Hx Renal Disorders: No - Liver History Hx Hepatic Disorders: No - Cancer History Hx Cancer: No - Congenital Disorder History Hx Congenital Disorders: No - GI History GERD: mild - Chronic Pain History Chronic Pain: Yes ANE Review of Systems Review of Systems: - Exercise capacity METS (RN): 4 METS ANE Patient History - Allergies Allergies/Adverse Reactions: No Known Allergies Allergy (Unverified 08/08/17 04:29) - Home Medications Home Medications: Herbals/Supplements -Info Only 1 ea PO DAILY 08/05/17 [Last Taken Unknown] Ibuprofen [Motrin (*)] 200 mg PO DAILY PRN 08/05/17 [Last Taken Unknown] Propylene Glycol/Peg 400 [SYSTANE 0.3-0.4% EYE DROPS] 1 drop EACHEYE DAILY PRN 08/05/17 [Last Taken Unknown] Levothyroxine [Synthroid 88 mcg (*)] 88 mcg PO DAILY06 08/08/17 [Last Taken Unknown] - NPO status NPO Since - Liquids (Date): 08/07/17 NPO Since - Liquids (Time): 20:00 NPO Since - Solids (Date): 08/07/17 NPO Since - Solids (Time): 20:00 - Anes Hx Anes Hx: no prior problems - Smoking Hx Smoking Status: Current every day smoker Marijuana use: Yes - Alcohol Use Alcohol Use: Occasionally (3-5 drinks/week) ANE Labs/Vital Signs - Labs Result Diagrams: 08/08/17 04:45 08/08/17 04:45 - Vital Signs Blood Pressure: 138/77 Heart Rate: 64 Respiratory Rate: 20 O2 Sat (%): 96 Height: 157.48 cm Weight: 79.379 kg ANE Physical Exam - Airway Neck exam: FROM Mallampati Score: Class 3 Mouth exam: normal dental/mouth exam - Pulmonary Pulmonary: clear to auscultation - Cardiovascular Cardiovascular: regular rate and rhythym - ASA Status ASA Status: II ANE Anesthesia Plan Anesthesia Plan: general endotracheal anesthesia
[2017-08-08] MEDS ORDERED: fentaNYL 250 MCG/5 ML INJ ONE (14:08)
[2017-08-08] MEDS ORDERED: PROPOFOL 200 MG/20 ML VIAL ONE ×2 (14:08→14:28)
[2017-08-08] MEDS ORDERED: DEXAMETHASONE 4 MG/ML VIAL ONE (14:09)
[2017-08-08] MEDS ORDERED: ROCURONIUM 50 MG/5 ML VIAL ONE (14:09)
[2017-08-08] MEDS ORDERED: ONDANSETRON 4 MG/2 ML VIAL ONE ×2 (14:09→15:10)
[2017-08-08] MEDS ORDERED: BUPIVACAINE 0.25% 30 ML SDV ONE (14:12)
--- NOTE | 2017-08-08 14:14 | SOAPPROG ---
Downtime Inpatient MD Late Entry SOAP Note: I discussed the findings on HIDA with Amie and recommended laparoscopy and drainage of the bileoma with possible closure of the leak source. I explained the procedure, risks and expected recovery and benefits. Informed consent was obtained.
[2017-08-08] MEDS ORDERED: MIDAZOLAM 2 MG/2 ML VIAL ONE (14:31)
[2017-08-08] MEDS: AMPICILLIN/SULBACTAM 3 GM in NS 100 ML IV SCH ×2 (15:02→20:45)
[2017-08-08] MEDS ORDERED: NEOSTIGMINE METHYLSULFATE 3 MG/3 ML SYR ONE (15:14)
[2017-08-08] MEDS ORDERED: GLYCOPYRROLATE 0.2 MG/1 ML VIAL ONE (15:14)
[2017-08-08] MEDS ORDERED: fentaNYL 100 MCG/2 ML INJ IVP PRN (15:45)
[2017-08-08] MEDS ORDERED: NALOXONE HCL 0.4 MG/ML INJ IVP PRN (15:45)
--- NOTE | 2017-08-08 15:46 | POSTOPPROG ---
Post Op Note Date of Operation: 08/08/17 Surgeon: Theron Luke (, FACS) Anesthesiologist: Jamaal Duvall Anesthesia: GET(General Endotracheal) Pre-op Diagnosis: bile leak post lap mauri Post-op Diagnosis: cystic duct leak Procedure: Laparoscopy/drainage bileoma/re-clipping of cystic duct Inf/Abcess present in the surg proc area at time of surgery?: Yes Depth: Organ Space Drains: Catalino Whitehead
--- NOTE | 2017-08-08 16:10 | POSTANESTH ---
Post Anesthetic Evaluation Cardiovascular Status: Normal, Stable Respiratory Status: Normal, Stable Level of Consciousness/Mental Status: Can Participate in Eval Pain Control: Adequate, Prn Tx Ordered
[2017-08-08] MEDS ORDERED: AMPICILLIN/SULBACTAM 3 GM in NS 100 ML IV SCH (18:00)
[2017-08-08] MEDS: SENNOSIDES/DOCUSATE SODIUM TAB PO SCH (20:44)
[2017-08-08] MEDS: TEMAZEPAM 15 MG CAP PO PRN (20:44)
[2017-08-09] MEDS: AMPICILLIN/SULBACTAM 3 GM in NS 100 ML IV SCH ×4 (02:27→20:08)
[2017-08-09] MEDS: SENNOSIDES/DOCUSATE SODIUM TAB PO SCH ×2 (08:26→20:06)
[2017-08-09] MEDS: LEVOTHYROXINE 88 MCG TAB PO SCH (08:26)
--- NOTE | 2017-08-09 10:40 | SOAPPROG ---
SOAP Progress Note Assessment/Plan: Assessment: s/p laparoscopy/drainage bileoma Plan: increase activity/continue Abx/check cultures anticipate discharge tomorrow 08/09/17 10:37 Subjective: awake/feels better Objective: Vital Signs Temp Pulse Resp BP Pulse Ox 36.8 C 76 16 110/65 94 08/09/17 07:44 08/09/17 07:44 08/09/17 07:44 08/09/17 07:44 08/09/17 07:44 Microbiology 08/08/17 15:10 Gram Stain - Final Peritoneal Fluid - Anaerobic Tube/Swab 08/08/17 08/09/17 08/10/17 05:59 05:59 05:59 Intake Total 2750 Output Total 100 Balance 2650 PT 12.3 SEC (12.0-15.0) 08/08/17 04:45 INR 0.92 (0.83-1.16) 08/08/17 04:45 - Pending Discharge Pending Discharge Within 24 Hours: Yes Pending Discharge Date: 08/10/17 Pending Discharge Time: 11:00 Physical Exam - Physical Exam General Appearance: mild distress Respiratory: lungs clear Cardiac/Chest: regular rate, rhythm Abdomen: non-tender, soft, other (ESTEFANY serous drainage) ICD10 Worksheet Patient Problems: Problems Problem Status Onset Abdominal pain Acute Acute cholecystitis Acute
[2017-08-09] MEDS: ENOXAPARIN 40 MG/0.4 ML SYR SC SCH (12:40)
[2017-08-09] MEDS: HYDROCODONE/APAP 5/325 TAB PO PRN ×2 (14:36→20:06)
[2017-08-09] MEDS: TEMAZEPAM 15 MG CAP PO PRN (20:06)
[2017-08-10] MEDS: AMPICILLIN/SULBACTAM 3 GM in NS 100 ML IV SCH ×2 (02:40→08:14)
[2017-08-10 04:47] LABS: HEMATOCRIT 33.5 % (38.0-47.0); HEMOGLOBIN 11.4 g/dL (12.6-16.3); MEAN CELL HEMOGLOBIN 32.4 pg (27.9-34.1); MEAN CELL VOLUME 95.2 fL (81.5-99.8); RED BLOOD CELL COUNT 3.52 10^6/uL (4.18-5.33); RED CELL DISTRIBUTION WIDTH 13.2 % (11.5-15.2)
[2017-08-10 05:05] LABS: ALANINE AMINOTRANSFERASE 71 IU/L (9-52); ALBUMIN 2.9 g/dL (3.5-5.0); ALKALINE PHOSPHATASE 66 IU/L (38-126); ANION GAP 11 mEq/L (8-16); ASPARTATE AMINOTRANSFERASE 27 IU/L (14-46); BILIRUBIN,TOTAL 0.1 mg/dL (0.1-1.4); CALCIUM 8.6 mg/dL (8.5-10.4); CARBON DIOXIDE 24 mEq/l (22-31); CHLORIDE 105 mEq/L (97-110); CREATININE 0.8 mg/dL (0.6-1.0); GLOMERULAR FILTRATION RATE > 60; GLUCOSE 82 mg/dL (70-100); POTASSIUM 4.2 mEq/L (3.5-5.2); SODIUM 140 mEq/L (134-144); TOTAL PROTEIN 5.4 g/dL (6.3-8.2)
[2017-08-10 08:10] VITALS: BP 131/74; PULSE 63; RESP 16; TEMP 97.9; O2SAT 95
[2017-08-10] MEDS: SENNOSIDES/DOCUSATE SODIUM TAB PO SCH (08:14)
[2017-08-10] MEDS: LEVOTHYROXINE 88 MCG TAB PO SCH (08:14)
[2017-08-10] MEDS: ENOXAPARIN 40 MG/0.4 ML SYR SC SCH (08:15)
--- NOTE | 2017-08-10 08:32 | PDDCSUM ---
Discharge Summary Discharge Summary: DOA 06/08 DOD 06/10/17 DC Dx: post op bileoma Procedures: 06/08/17 laparoscopy with drainage bileoma Hospital Course: Amie returned POD #2 after an urgent lap cholecystectomy with abd pain. CT showed fluid around the liver and a HIDA scan confirmed a bile leak had occured. I brought her back to surgery and drained the bileoma laparoscopically and found the cystic duct with no visible clip on it. I resecured the cystic duct with 2 x titanium clips and placed a drain. She had a very small duct and I suspect the tissue necrosed after placement of clips at the time of surgery. Post operatively she felt much improved. Her drainage diminished rapidly and became serous. The morning of discharge I removed the drain. Her incisions were healing well and she tolerated a regular diet. Her cultures were no growth at the time of discharge and I switched her to oral Augmentin after 2 days of IV Unasyn and will continue for an additional 3 days. If cultures remain negative I will stop antibiotics at that time. She was instructed in wound care and activity. I asked her to call my office for a post op visit later this week. DC Medications: medication reconciliation completed Loreto Luke MD, FACS
[2017-08-10] MEDS ORDERED: AMOXICILLIN/CLAVULANATE POT 875/125 MG TAB PO SCH (09:00)
[2017-08-10] MEDS: HYDROCODONE/APAP 5/325 TAB PO PRN (09:29)
--- NOTE | 2017-08-10 17:00 | ASDISCHSUM ---
Discharge Information Plan Status:Home with No Needs Medically Cleared to Leave:08/10/2017 Discharge Date:08/10/2017 11:00 AM CM D/C Disposition: ADT D/C Disposition:Home, Routine, Self-Care Projected Discharge Date:08/10/2017 12:00 AM Transportation at D/C: Discharge Delay Reason: Follow-Up Date:08/10/2017 12:00 AM Discharge Slot: Final Diagnosis: Placement Information Patient Contact Information Contact Name:ROSANA Relationship:Mother Address:[address] [address] City:[place] Alternate Phone: [facility]/Zip Code:[place] [address] Email: Financial Information Financial Class:HMO and PPO Plans Primary Plan Desc:[employer] PPO [employer] Primary Plan Number:[id number] Secondary Plan Desc: Secondary Plan Number: Assessment Information [facility] CM Progress Note CM Note CM Note Notes: Reviewed chart; spoke w/ JUAN Whittaker re: d/c poc, pt's progress. Pt admitted s/p a recent emergent lap mauri for acute cholecystitis. Pt c/o of severe RUQ pain, found to have free fluid in abd cavity. Pt lives alone and works at [employer] Per Remedios, pt will likely d/c home independently when medically stable. CM avail if poc changes. Date Signed: 08/08/2017 11:02 AM Electronically Signed By:Vivian Nunez RN Intervention Information
== END 2017-08-10 11:00 | disposition home or self-care (01) ==
LOC: INTOOBSV 06:58 → F3E 07:57
PROVIDERS: ADMIT Surgery; ATTEND Surgery
PROC: 0F9 Hepatobiliary System and Pancreas, Drainage (ICD-10-PCS; principal; 2017-08-08 14:30)
PROC: 0FL84CZ Occlusion of Cystic Duct with Extraluminal Device, Percutaneous Endoscopic Approach (ICD-10-PCS; principal; 2017-08-08 14:30)
DX: K91.89 Other postprocedural complications and disorders of digestive system (principal); Z72.0 Tobacco use
CPT/HCPCS: 47579; 71010; 74000; 74177; 76705; 78226; 93005; 96361; 96374; 96375; 96376; 99285; A9537; G0378; J0295; J1100; J1170; J1650; J2250; J2405; J2704; J2710; J3010; Q9967